=== PATIENT | male | born 1960 | race Caucasian/White ===

== ENCOUNTER 2019-06-22 19:11 | Observation (INO) | payer OTHER, SELFPAY ==
[2019-06-22] VITALS (8 sets, daily range): BP systolic 163–184; BP diastolic 94–108; PULSE 66–100; RESP 13–21; TEMP 36.8; O2SAT 94–98; BMI 26.2; BMI 26.1; BMI 25.6
--- NOTE | 2019-06-22 19:15 | CT_ITS ---
We are attempting to reach an attending provider to discuss findings. An addendum with communication details will be sent when the communication is complete. STUDY: CT BRAIN WITHOUT CONTRAST REASON FOR EXAM: Male, 59 years old. Right facial numbness and slurred speech RADIATION DOSAGE (If Supplied By Facility): CTDIvol = ( 44.99 ) mGy, DLP = ( 812.968 ) mGycm TECHNIQUE: Transaxial CT imaging of the brain was performed without administration of intravenous contrast material. Individualized dose optimization techniques were used for this CT. COMPARISON: No relevant priors. FINDINGS: Brain parenchyma is without focal lesions, mass effect, acute intracranial hemorrhage, extra parenchymal fluid collections, hydrocephalus or herniation. There is a right lentiform nucleus dilated perivascular space. The skull is intact. CT/Brain/Head without Contrast IMPRESSION: 1. Normal CT brain. Electronically Signed: Carey Joy, at 19:33 EST Tel , Service support ,
--- NOTE | 2019-06-22 19:15 | EKG12_ITS ---
Test Reason : NEURO Blood Pressure : / mmHG Vent. Rate : 081 BPM Atrial Rate : 081 BPM P-R Int : 154 ms QRS Dur : 084 ms QT Int : 374 ms P-R-T Axes : 041 034 -10 degrees QTc Int : 434 ms Normal sinus rhythm T wave abnormality, consider inferior ischemia Abnormal ECG Confirmed by RUSTY ARAYA, VIJAY ([id number]), manager editorial BECKA MOLINA ([id number]) on 06/26/2019 10:28:33 AM Referred By: DONALD Confirmed By:SANDOR OJEDA MD
--- NOTE | 2019-06-22 19:20 | RAD_ITS ---
STUDY: X-RAY CHEST REASON FOR EXAM: Male, 59 years old. STROKE ALERT. PT RIGHT FACIAL NUMBNESS AND SLURRED SPEECH STARTING AROUND 0600 TECHNIQUE: Frontal view of the chest was performed COMPARISON: None. FINDINGS: The lungs are clear and expanded. There is no demonstrated pleural abnormality. Normal size heart. Normal mediastinum and tong. Normal visualized pulmonary arteries. Normal visualized aortic arch and descending thoracic aorta. Normal visualized thoracic spine. Normal visualized ribs, clavicles, and shoulders. There is no demonstrated abnormality of the visualized soft tissue structures of the upper abdomen. RAD/Chest 1 View IMPRESSION: Normal x-ray examination of the chest. Electronically Signed: Carey Joy, at 19:35 EST Tel , Service support ,
--- NOTE | 2019-06-22 19:21 | NURSING ---
PT AND DO NOT KNOW HOME MEDICATIONS.
--- NOTE | 2019-06-22 19:25 | ED.VIS.STROK ---
History of Present Illness Chief Complaint: Neuro S/Sx Informant: Patient, Family Onset: Today Quality and Location: Right Facial Droop, Right Face Paresthesia, Expressive Aphasia Narrative: Patient is a 59-year-old male with history of hypertension presenting with stroke symptoms. His symptoms started at 0600, 13 hours prior to arrival. Patient states he is noticed he is had a slight paresthesia over the right side of his face and he feels that he has some slight weakness of that side. He states he notices it when he tries to spit. In addition he feels that his speech is slightly slurred. His and neighbor feel this way as well. He denies any vision changes, extremity weakness or other symptoms. He is not on any anticoagulation. Denies any falls or head injuries. He denies any other symptoms at this time. He did not take any aspirin today. Past Medical History - Allergies and Home Meds Allergies/Adverse Reactions: Allergies No Known Allergies Allergy (Verified 06/22/19 20:57) Past Medical History: - - Hypertension Surgical History: noncontributory Lives: Spouse/ Significant Other Smoking Status: Never smoker - Family History Maternal Family History: Reports: Dementia Paternal Family History: Reports: - - Denies any medical history. His father is in his 90s. His father has had hip replacement. Review of Systems General: Denies: Chills, Fever, Sweats Eyes: Denies: Visual changes - bilaterally, Diplopia ENT: Denies: Rhinorrhea, Sore throat Cardiovascular: Denies: Chest pain, Palpitations Respiratory: Denies: Dyspnea, Cough, Dyspnea on exertion Gastrointestinal: Denies: Abdominal pain, Nausea, Vomiting, Diarrhea, Melena, Hematochezia Genitourinary: Denies: Dysuria, Hematuria, Frequency Musculoskeletal: Denies: Back pain, Extremity Pain Skin: Denies: Rash, Wounds Neurological: Reports: Weakness - Right face, Parasthesia - Right face, - - Speech changes. Denies: Headache, Numbness STROKE Vital Signs/Narrative: Vital Signs Temp Pulse Resp BP Pulse Ox 06/22/19 19:15 79 18 167/94 H 97 06/22/19 19:12 98.2 F 83 17 184/102 H 98 Inital Vital Signs reviewed: Yes - NIHSS Initial 1a Level of Consciousness: 0 1b LOC Questions (Score 2 if aphasic/stupor): 0 1c LOC Commands (Only score 1st attempt): 0 2 Best Gaze (If aphasic, use reflexive mvmts.): 0 3 Visual: 0 4 Facial Palsy: 1 - right 5 Motor Arm Right (UN = amputation/fusion): 0 5 Motor Arm Left: 0 6 Motor Leg Right: 0 6 Motor Leg Left: 0 7 Limb ataxia (Only + if out of proportion): 0 8 Sensory (Aphasia/stupor=0 or 1, coma=2): 1 - right face 9 Best Language: 0 10 Dysarthria (mute, coma=2, intubated=UN): 0 11 Extinction and Inattention (only scored if +): 0 Total Score: 2 General: Well nourished, Well developed Head: Normocephalic, Atraumatic Eyes: Perrl, EOMI ENT: Moist mucous membranes, No rhinorrhea Neck: Supple, Nontender Cardiovascular: Regular rate, Regular rhythm, No murmurs Respiratory: No distress, CTA bilaterally, Chest nontender Abdomen: Soft, Nontender, Nondistended, Normal bowel sounds Back: Nontender, Normal Inspection Extremities: Nontender, No edema Skin: Normal color, No rash Neurological: Alert, Oriented x3, Cranial nerves II-XII grossly intact, Normal Strength, Normal Sensation Psychological: Normal affect Diagnostic/Tx/Re-eval Clinical Impression(s) from Imaging Studies Brain CT 06/22/19 19:15 IMPRESSION: 1. Normal CT brain. Electronically Signed: Carey Joy at 19:33 EST Tel , Service support , ADDENDUM: 06/22/191940 IMPRESSION: 1. Normal CT brain. N.B. : The above information has been verbally conveyed by Carey Joy to Dennys Hurst MD, on 06/22/2019 19:34:51 (ET). Electronically Signed: Carey Joy at 19:33 EST Tel , Service support , ADDENDUM: 06/22/191943 IMPRESSION: 1. Normal CT brain. N.B. : The above information has been verbally conveyed by Carey Joy to Dr. Kindra Gonzalez MD, on 06/22/2019 19:37:04 (ET). Electronically Signed: Dionnemadeline Benita, at 19:33 EST Tel , Service support , Chest X-Ray 06/22/19 19:20 IMPRESSION: Normal x-ray examination of the chest. Electronically Signed: Carey Benita, at 19:35 EST Tel , Service support , Laboratory Data 06/22/19 06/22/19 06/22/19 19:15 19:15 19:15 WBC 9.1 RBC 5.02 Hgb 14.5 Hct 43.0 MCV 85.7 MCH 28.9 MCHC 33.7 RDW Std Deviation 40.0 RDW Coeff of Diego 12.9 Plt Count 255 MPV 9.5 Immature Gran % (Auto) 0.400 Neut % (Auto) 74.0 H Lymph % (Auto) 16.9 L [place] % (Auto) 4.2 Eos % (Auto) 3.9 Baso % (Auto) 0.6 Absolute Neuts (auto) 6.7 Absolute Lymphs (auto) 1.53 Nucleated RBC % 0 PT 14.2 INR 1.1 APTT 28.5 Sodium 139 Potassium 3.9 Chloride 107 Carbon Dioxide 27.0 Anion Gap 5 BUN 17 Creatinine 1.43 H Estim Creat Clear Calc 52.48 Est GFR (MDRD) Af Amer 65 Est GFR (MDRD) Non-Af 53 L BUN/Creatinine Ratio 11.9 Glucose 177 H Calcium 9.2 Troponin I < 0.015 Chest X-Ray - ED: 1 View, Read by ED Physician, Read by Radiologist, No Acute Disease - Rhythm Strip Rhythm Strip: Sinus Rhythm Rate: 81 Ectopy: None - EKG Initial EKG Interpretation: Sinus Rhythm, - - Sinus rhythm at a rate of 81 Normal intervals Normal axis T wave inversions in inferior leads with no reciprocal changes No change prior to prior EKG on 08/27/2002 - Medical Decision Making Stroke Team Activated: Yes Reviewed Inclusion/Exclusion criteria: Yes - TPA candidate, symptoms present for 13 hours Was Patient considered for Endovascular Intervention?: No - Low NIH Patient is evaluated for subjective speech slurring, facial droop and facial paresthesias that started this morning. He was already awake when they started. Stroke alert is called as a symptoms been present for less than 24 hours. Discussed with stroke neurologist who agrees that patient is not a TPA candidate. This was . CT brain does not show any acute stroke. Patient will be admitted for further stroke evaluation. He is given aspirin in the emergency room. Creatinine is mildly elevated however I do not have a baseline to compare with. Patient is not aware of any history of CKD. Patient will be given a liter of fluid in the emergency room for recheck of his creatinine in the morning. Patient is agreeable with this plan. He stable for PCU at time of disposition. Admitting hospitalist was able to find patient's baseline creatinine which appears to be 1.22. ED Disposition - Plan for ED Patient: Disposition: Acute Care Hospital [facility] Diagnosis: Stroke-like symptoms
[2019-06-22 19:29] LABS: Absolute Lymphocyte Count 1.53 X10^3/uL (0.83-4.51); Absolute Neutrophil Count 6.7 X10^3/uL (2.0-7.7); Basophil# 0.05 X10^3/uL; Basophil% 0.6 % (0-1); Eosinophil# 0.35 X10^3/uL; Eosinophils% 3.9 % (0-5); Hemoglobin 14.5 g/dL (13.0-16.5); Lymphocyte # 1.53 X10^3/ul (4.0); Lymphocyte % 16.9 % (19-41); Mean Corp Hgb Conc 33.7 g/dL (32-36); Mean Corpuscular Hgb 28.9 pg (27.0-32.0); Mean Corpuscular Volume 85.7 fL (80-94); Mean Platelet Vol. 9.5 fl (6.2-12.0); Monocyte# 0.38 X10^3/uL; Monocyte% 4.2 % (0-10); NRBC Flagged by Analyzer 0 % (0-5); Neutrophil # 6.73 X10^3/uL (2.7-7.7); Platelet Count 255 K/mm3 (150-450); RBC Distribution Width CV 12.9 % (11.6-14.6); Red Blood Count 5.02 M/mm3 (4.6-6.2); White Blood Count 9.1 K/mm3 (4.4-11.0)
[2019-06-22 19:39] LABS: International Normalized Ratio 1.1; Prothrombin Time (Protime)PT. 14.2 SECONDS (11.7-14.9)
[2019-06-22 19:40] LABS: Partial Thromboplast Time 28.5 Seconds (24.1-36.2)
[2019-06-22 19:46] LABS: Anion Gap 5 (5-15); BUN 17 mg/dL (7-18); BUN/Creat Ratio 11.9 RATIO (10-20); Calcium,Total 9.2 mg/dL (8.5-10.1); Chloride 107 mmol/L (98-107); Creatinine, Serum 1.43 mg/dL (0.70-1.30); EST Glomerular Filtration Rate 53 mL/min (>60); Est Glom Filt Rate - Afr Amer 65 mL/min (>60); Estimated Creatinine Clearance 52.48 ml/min; Glucose 177 mg/dL (74-106); Potassium 3.9 mmol/L (3.5-5.1); Sodium Level 139 mmol/L (136-145)
--- NOTE | 2019-06-22 20:01 | PCM.HP.STD ---
Problem List (1) Stroke-like symptoms Status: Acute History of Present Illness Date of Admission: 06/22/19 Chief Complaint: Paresthesia The patient is a 59 year old M with a significant history of hypertension who presents emergency department with paresthesia of his right face. His symptoms started about 13 hours prior to presentation. Associated with symptoms is mild slurry speech; mild right sided facial droop and weakness on the right side of the face. He realized that the right side of his face was weak because of difficulty to spit. He denies any dysphagia; or vision changes. Stroke alert was called at the emergency department. Emergency department doctor discussed the case with telemetry neurologist and patient will be admitted for further work-up. Past Medical History Medical History: Medical History (Last Reviewed 06/22/19 @ 20:46 by Jerson Mora MD) Hypertension I10 Home Medications: Ambulatory Orders Medication Instructions Recorded Telmisartan 40 mg PO QODAY 06/22/19 Surgical History: no surgical history Lives: With Family Smoking Status: Never smoker Alcohol: Rare - *Family History Maternal History Items: Dementia Paternal History Items: - - Denies any medical history. His father is in his 90s. His father has had hip replacement. Review of Systems Constitutional: Denies: Chills, Fever, Weight Change HEENT: Denies: Head Aches, Sinus Congestion, Sinus Drainage Cardiovascular: Denies: Chest Pain, Palpitations Respiratory: Denies: Cough, Shortness of breath at rest, Sputum production Gastrointestinal: Denies: Abdominal Pain, Nausea, Vomiting Genitourinary: Denies: Dysuria Musculoskeletal: Denies: Joint Pain, Joint Tenderness Skin: Denies: Rash, Wounds Neurological: Reports: Slurred speech, Focal weakness - Right face, Headaches Psychiatric: Denies: Anxiety, Depression, Homicidal Ideations, Suicidal Ideations Hematologic/ Lymphatic: Denies: Easy Bruising, Easy Bleeding VTE Information - Inpt Only VTE Present on Admission: No VTE Mechan Device Prophylaxis: None VTE Pharm Prophylaxis ordered?: Yes Patient Problems: Active and Suspected Problems (Last Updated 06/22/19 @ 20:45 by Jerson Mora MD) Stroke-like symptoms (Acute) - Physical Exam Vitals/I&O's: Vital Signs Temp Pulse Resp BP Pulse Ox 98.2 F 84 21 H 173/108 H 97 06/22/19 19:12 06/22/19 19:42 06/22/19 19:42 06/22/19 19:42 06/22/19 19:42 Oxygen Delivery Method Room Air Weight: 78.018 kg Body Mass Index (BMI) 26.1 Finger Stick Blood Glucose 85 General: Alert, Oriented x3, Cooperative HEENT: Atraumatic, PERRLA, EOMI, Normocephalic Neck: Supple, No JVD, Negative Carotid Bruits Lungs: Clear to auscultation, Normal air movement Cardiovascular: Regular rate, Normal S1, Normal S2, No murmurs Abdomen: Bowel Sounds Present, Soft, Non Tender Extremities: No edema, Capillary Refill Less than 3 Seconds Skin: No rashes, No breakdown Musculoskeletal: No Tenderness to Palpation of Joints or Extremities Neurological: Deep Tendon Reflexes 2+/4 and Symmetrical, Motor Exam 5/5 strength throughout, Facial Droop - Right side, Muscle tone normal, Sensory exam intact to light touch and pain, Coordination normal Psych/Mental Status: Normal Affect, Appropriate Laboratory Results 06/22/19 19:15: WBC 9.1, RBC 5.02, Hgb 14.5, Hct 43.0, MCV 85.7, MCH 28.9, MCHC 33.7, RDW Std Deviation 40.0, RDW Coeff of Diego 12.9, Plt Count 255, MPV 9.5, Immature Gran % (Auto) 0.400, Neut % (Auto) 74.0 H, Lymph % (Auto) 16.9 L, [place] % (Auto) 4.2, Eos % (Auto) 3.9, Baso % (Auto) 0.6, Absolute Neuts (auto) 6.7, Absolute Lymphs (auto) 1.53, Nucleated RBC % 0 06/22/19 19:15: PT 14.2, INR 1.1, APTT 28.5 06/22/19 19:15: Sodium 139, Potassium 3.9, Chloride 107, Carbon Dioxide 27.0, Anion Gap 5, BUN 17, Creatinine 1.43 H, Estim Creat Clear Calc 52.48, Est GFR (MDRD) Af Amer 65, Est GFR (MDRD) Non-Af 53 L, BUN/Creatinine Ratio 11.9, Glucose 177 H, Calcium 9.2, Troponin I < 0.015 Current Medications Sodium Chloride () 1,000 mls @ 150 mls/hr IV .Q6H40M [facility] Assessment/Plan All Active Problems (Last Updated 06/22/19 @ 20:45 by Jerson Mora MD) Stroke-like symptoms (Acute) The patient is a 59 year old M with a significant history of hypertension who presents emergency department with paresthesia of his right face; mild slurry speech; mild right sided facial droop and weakness on the right side of the face recently strokelike symptoms. Strokelike symptoms Frequent NINDS NIH Scale per kimbrough protocol. CT of the head was unremarkable. CT of the head was independently reviewed. I agree with radiologist interpretation. -Check Hba1c, Lipid level Physical therapy, occupational therapy and speech therapy to work with patient. Passed swallow eval at emergency department. Okay to resume patient on a diet. N.p.o. until bedside swallow eval. Received aspirin at the emergency department. Aspirin continued. Will start patient on Plavix. High intensity statin started Permissive hypertension. Control blood pressure with labetalol for systolic blood pressure of more than 220 or diastolic blood pressure of more than 120. -Permissive HTN for 24 hrs, jail goal BP < 120/80 mmHg and goal Hba1c < 7% MRI of the brain. CTA head and neck stroke protocol. Echocardiogram ordered. Hypertension On presentation his blood pressure was not within goal. However this could be autoregulation to maintain blood flow to penumbra. Home Telmisartan held. Permissive hypertension as above. Hyperglycemia. Accu-Chek on presentation was 185. Accu-Chek on BMP was 177. Accu-Chek QA [facility] with correction scale insulin ordered. A1c as above. Elevated creatinine with a diagnosis of BONNIE. His creatinine at Dr. Clemente Higgins's office on 07/09/2017 was 1.22. His creatinine on presentation was 1.43. Gentle IV hydration especially in the setting where patient will be getting IV contrast for CTA. DVT prophylaxis Subcutaneous Lovenox. Code Visit OBSV E&M: 92395 Initial observation care L3
[2019-06-22] MEDS: Aspirin 325 MG Tablet PO (20:04)
[2019-06-22] MEDS: 0.9% Normal Saline 1,000 ML 150 ML IV ×2 (20:09→22:39)
--- NOTE | 2019-06-22 20:49 | CT_ITS ---
HISTORY: Neurodeficit. Right facial numbness. Technique: Following the uneventful ministration of 100 ML of Isovue-370 contiguous helical images were obtained through the neck and brain. 2-D and 3-D reformats as MIPs. 890 images. Comparison study is a CT scan of the brain from about 2 hours earlier. Findings: CT angiogram neck Lung apices are clear. Some calcific plaque within the aortic arch. Flow is normal within the brachiocephalic, left and right common carotid, left and right subclavian, and left and right vertebral arteries. Both vertebral arteries ascend within their respective vertebral foramina, and remain patent into the skull. Flow is normal within bilateral CCAs, ICAs, and ECAs. Both ICAs remain patent into the skull. The submandibular, and parotid glands are normal. A hypodense lesion within the left lobe of the thyroid gland is likely benign The epiglottis and uvula remain within the midline. The airway is widely patent. No adenopathy. CT angiogram brain: Flow is present within bilateral intracranial vertebral arteries, the basilar artery, superior cerebellar arteries and fire patrol. The anterior communicating artery is patent. Tiny bilateral posterior communicating arteries are patent. Flow is present within the intracranial ICAs, ACAs, and MCAs. There are no aneurysms, stenoses, occlusions, nor dissections. CT/CTA Head AND Neck W/ Contrast IMPRESSION: Normal. Individualized dose optimization techniques were used for this CT. at 0518 Reported and signed by: Hilario Guidry MD Electronically Signed: Hilario Guidry MD at 5:17 EST Tel , Service support ,
--- NOTE | 2019-06-22 20:49 | ECHOD_ITS ---
Reason For Study: TIA/CVA Procedure This was a 2D Doppler, Color Flow transthoracic echocardiogram. Exam performed portable in patient room. Left Ventricle Normal LV size. The estimated ejection fraction is 60 %. No evidence for diastolic dysfunction. No regional wall motion abnormalities noted. Right Ventricle Normal RV size. Normal systolic function. Atria Normal left atrium. Normal right atrium. No doppler evidence for ASD. Bubble contrast study negative for right to left interatrial shunt. Mitral Valve There is no mitral valve stenosis. Trivial mitral valve insufficiency. Tricuspid Valve There is no tricuspid stenosis. Trivial tricuspid valve insufficiency. Unable to estimate RV systolic pressure due to insufficient tricuspid regurgitant envelope. Aortic Valve Trisinus/trileaflet aortic valve. There is no aortic stenosis. Trivial aortic valve insufficiency. Pulmonic Valve There is no pulmonic valvular stenosis. No pulmonic valve insufficiency. Great Vessels Normal aortic root. Pericardium/Pleural No pericardial effusion. Medication Performed a rapid injection of agitated mix of 9 cc saline and 1cc air to assess for atrial septal defect. MMode/2D Measurements & Calculations LVIDd: 4.5 cm IVSd: 1.2 cm Ao root diam: 3.1 cm LVIDs: 2.6 cm LVPWd: 1.0 cm RVDd: 3.4 cm FS: 42.9 % LAV(MOD-bp): 49.7 ml LA A4 area: 12.3 cm2 LA dimension(2D): 3.3 cm LAV(MOD-bp) Indexed: 26.2 ml/m2 LAV(MOD-sp2): 49.3 ml LAV(MOD-sp4): 35.8 ml Time Measurements MV dec time: 0.20 sec Doppler Measurements & Calculations MV E max mark: 80.8 cm/sec Lat Peak E' Mark: 9.5 cm/sec Med Peak E' Mark: 7.0 cm/sec MV A max mark: 77.0 cm/sec E/E' lat: 8.5 E/E' med: 11.5 MV E/A: 1.0 Ao V2 max: 120.6 cm/sec LV V1 max: 109.7 cm/sec PA V2 max: 104.8 cm/sec Ao max P.8 mmHg LV V1 max P.8 mmHg Ao V2 mean: 82.2 cm/sec Ao mean P.0 mmHg Ao V2 VTI: 25.2 cm TR max mark: 268.3 cm/sec TR max P.8 mmHg Interpretation Summary The estimated ejection fraction is 60 %. No evidence for diastolic dysfunction. Bubble contrast study negative for right to left interatrial shunt. Trivial mitral valve insufficiency. Trivial tricuspid valve insufficiency. Trivial aortic valve insufficiency. Ordering Physician: Jerson Mora Referring Physician: Pernell Garcia Performed By: Tia Luke RDCS, RVT
[2019-06-22 21:46] LABS: Hemoglobin A1c 5.9 % (4.2-6.3)
[2019-06-22] MEDS: 0.9% Saline Lock 10 ML Syringe IV (22:39)
[2019-06-22] MEDS: Atorvastatin Calcium 80 MG Tablet PO (22:57)
[2019-06-23] VITALS (7 sets, daily range): BP systolic 135–152; BP diastolic 74–87; PULSE 59–68; RESP 12–16; TEMP 36.8–37; O2SAT 94–98; BMI 25.6
[2019-06-23 01:01] LABS: Bedside Glucose 86 mg/dL (70-110)
[2019-06-23] MEDS: 0.9% Normal Saline 1,000 ML 150 ML IV ×2 (05:52→12:30)
[2019-06-23 06:13] LABS: Absolute Lymphocyte Count 1.84 X10^3/uL (0.83-4.51); Absolute Neutrophil Count 6.7 X10^3/uL (2.0-7.7); Basophil# 0.05 X10^3/uL; Basophil% 0.5 % (0-1); Eosinophil# 0.39 X10^3/uL; Eosinophils% 4.1 % (0-5); Hematocrit 40.2 % (40-54); Hemoglobin 13.2 g/dL (13.0-16.5); Lymphocyte # 1.84 X10^3/ul (4.0); Lymphocyte % 19.4 % (19-41); Mean Corp Hgb Conc 32.8 g/dL (32-36); Mean Corpuscular Hgb 28.1 pg (27.0-32.0); Mean Corpuscular Volume 85.5 fL (80-94); Mean Platelet Vol. 9.8 fl (6.2-12.0); Monocyte# 0.55 X10^3/uL; Monocyte% 5.8 % (0-10); NRBC Flagged by Analyzer 0 % (0-5); Neutrophil # 6.65 X10^3/uL (2.7-7.7); Neutrophil % 70.1 % (47-70); Platelet Count 230 K/mm3 (150-450); RBC Distribution Width CV 13.1 % (11.6-14.6); RBC Distribution Width SD 40.7 fl (35.1-43.9); White Blood Count 9.5 K/mm3 (4.4-11.0)
[2019-06-23 06:37] LABS: Anion Gap 2 (5-15); BUN 14 mg/dL (7-18); BUN/Creat Ratio 11.8 RATIO (10-20); Calcium,Total 8.3 mg/dL (8.5-10.1); Chloride 109 mmol/L (98-107); Cholesterol 186 mg/dL (200); Creatinine, Serum 1.19 mg/dL (0.70-1.30); EST Glomerular Filtration Rate 66 mL/min (>60); Est Glom Filt Rate - Afr Amer 80 mL/min (>60); Estimated Creatinine Clearance 63.07 ml/min; Glucose 92 mg/dL (74-106); High Density Lipoprotein 47 mg/dL; Potassium 3.8 mmol/L (3.5-5.1); Sodium Level 139 mmol/L (136-145); Triglycerides 116 mg/dL; Very Low Density Lipoprotein 23 mg/dL (5-40)
[2019-06-23 07:06] LABS: Bedside Glucose 120 mg/dL (70-110)
--- NOTE | 2019-06-23 08:08 | PCM.PN.BLA ---
Progress Note This is a 59 years old male patient presented to the emergency room because of shortness of breath, found to have acute COPD exacerbation with hypoxia. Reportedly, patient had syncopal episode. By direct questioning, patient mentioned that he stood up at the bed edge and he collapsed because he was weak. He mentioned that he did not lose his consciousness, was not dizzy or lightheaded. He denied preceding chest pain or palpitation. Today, he reported minimal improvement of his symptoms. Chest x-ray showed no acute findings. Routine blood work was unremarkable. ABG reviewed. EKG revealed normal sinus rhythm without evidence of acute segment changes or cardiac arrhythmias. Troponin was negative. He is on IV steroids, IV Zithromax and bronchodilators. Plan to continue same treatment. STROKE Vital Signs/Narrative: Vital Signs Temp Pulse Resp BP Pulse Ox 06/23/19 07:00 95 06/23/19 06:47 67 06/23/19 05:00 98.4 F 68 12 135/74 H 95
[2019-06-23] MEDS: Enoxaparin 40 MG/0.4 ML Syringe SC (08:27)
[2019-06-23] MEDS: Clopidogrel Bisulfate 75 MG Tablet PO (08:27)
[2019-06-23] MEDS: Aspirin 81 MG TAB.CHEW PO (08:27)
--- NOTE | 2019-06-23 14:14 | DCINST_ITS ---
- Discharge Diagnoses Current Active Problems: Current Active and Chronic Problems (Last Reviewed 06/22/19 @ 20:46 by Jerson Mora MD) Stroke-like symptoms (Acute) You will use the following diet at home:: Cardiac Discharge Activity: Return to Normal Activity Weight Bearing Status: Full weight bearing Call your doctor if you observe: Fever of 101 or Higher, Shortness of breath, Dizziness, Fainting spells, Chest pain, Increased palpitations (irregular heartbeat), Uncontrolled pain Instructions: Hamilton's Palsy Allergies/Adverse Reactions: Allergies No Known Allergies Allergy (Verified 06/22/19 20:57) Medications to take at Discharge Telmisartan 40 mg PO QODAY 06/22/19 Aspirin [Aspirin, Baby] 81 mg PO DAILY@0800 #1 tab.chew 06/23/19 Prednisone 60 mg PO DAILY #45 tab 06/23/19 Valacyclovir HCl [Valacyclovir] 1,000 mg PO TID #21 tab 06/23/19 The following prescriptions were given: Aspirin [Aspirin, Baby] 81 mg PO DAILY@0800 #1 tab.chew Prednisone 60 mg PO DAILY #45 tab Transmission Status: Pending to [id number] Valacyclovir HCl [Valacyclovir] 1,000 mg PO TID #21 tab Transmission Status: Pending to [facility][id number] Primary Care Physician: Pernell Garcia DO [Primary Care Provider] - Please follow up with your Primary Care Physician in: 1 week. Test Results: Test results from this visit will be discussed in further detail at your follow- up appointment, if applicable.
--- NOTE | 2019-06-23 14:38 | DS.PCM_ITS ---
Discharge Date and Diagnosis - Problem List Patient Problems: Active and Suspected Problems (Last Reviewed 06/22/19 @ 20:46 by Jerson Mora MD) Hamilton's palsy (Acute) Date of Admission: 06/22/19 Date of Discharge: 06/23/19 - Primary Discharge Diagnosis Active and Suspected Problems (Last Reviewed 06/22/19 @ 20:46 by Jerson Mora MD) Hamilton's palsy. Hospital Course and Treatment Imaging Results: 06/23/19 20:49 Brain without Contrast [MRI] Routine Clinical Impression(s) from Imaging Studies Brain CT 06/22/19 19:15 IMPRESSION: 1. Normal CT brain. Electronically Signed: Carey Joy, at 19:33 EST Tel , Service support , ADDENDUM: 06/22/191940 IMPRESSION: 1. Normal CT brain. N.B. : The above information has been verbally conveyed by Carey Joy to Dennys Hurst MD, on 06/22/2019 19:34:51 (ET). Electronically Signed: Carey Joy at 19:33 EST Tel , Service support , ADDENDUM: 06/22/191943 IMPRESSION: 1. Normal CT brain. N.B. : The above information has been verbally conveyed by Carey Joy to Dr. Kindra Gonzalez MD, on 06/22/2019 19:37:04 (ET). Electronically Signed: Carey Joy at 19:33 EST Tel , Service support , Chest X-Ray 06/22/19 19:20 IMPRESSION: Normal x-ray examination of the chest. Electronically Signed: Carey Joy at 19:35 EST Tel , Service support , Head/Neck CTA 06/22/19 20:49 IMPRESSION: Normal. Individualized dose optimization techniques were used for this CT. at 0518 Reported and signed by: Hilario Guidry MD Electronically Signed: Hilario Guidry MD at 5:17 EST Tel , Service support , Brain MRI 06/23/19 20:49 IMPRESSION: Involutional changes of the brain, as described above. Electronically Signed: Rupesh Vergara MD at 12:43 EST Tel , Service support , Operations: None Procedures: 2-D Echocardiogram Summary of Care Provided: Patient seen and examined on the day of discharge and appeared to be stable to discharge home. Still complaining of numbness and tingling on the right side of his face over the right cheek, asymmetrical smile as well as asymmetrical forehead wrinkle. Her symptoms attributed to Hamilton's palsy. His vital signs are stable. He was given 1 dose of prednisone 60 mg x 1 p.o. and 1 dose of valacyclovir 1000 mg before discharge. The patient is a 59 year old M patient presented to the emergency room because of right facial paresthesia, right facial droop and slurred speech. He was admitted as a case of TIA for work-up. CT scan brain showed no acute findings. EKG revealed normal sinus rhythm without evidence of acute segment changes or cardiac arrhythmias. His vital signs were stable. His routine blood work was unremarkable. Blood profile revealed total cholesterol of 186, LDL cholesterol of 116 and HDL cholesterol of 47. Hemoglobin A1c was 5.9%. CTA of the head and neck performed and revealed no evidence of hemodynamically significant vascular disease or stenosis, it was normal. MRI brain showed no evidence of acute i nfarct or hemorrhage. 2D echocardiogram revealed ejection fraction of 60%, bubble contrast study negative for [id number] shunt, no significant valvular heart disease. On examination, patient does have right facial droop, minimal right eye ptosis although he was able to close his right eye but not tightly which is consistent with right facial palsy. He was given a dose of prednisone 60 mg x 1 as well as valacyclovir 1000 mg x 1 before discharge. Patient discharged home in a stable condition, discharged on prednisone 60 mg for 5 days and then tapered down each day until 10 mg daily and then stop, discharged on valacyclovir 1000 mg 3 times daily for 7 days, recommended to take aspirin 81 mg p.o. daily, recommended follow-up with PCP in 1 week. Patient Problems: Active and Suspected Problems (Last Reviewed 06/22/19 @ 20:46 by Jerson Mora MD) Hamilton's palsy (Acute) - Physical Exam Vitals/I&O's: Vital Signs Temp Pulse Resp BP Pulse Ox 98.3 F 66 16 152/79 H 97 06/23/19 12:25 06/23/19 12:25 06/23/19 12:25 06/23/19 12:25 06/23/19 12:25 Oxygen Delivery Method Room Air Weight: 168 lb 6.931 oz Body Mass Index (BMI) 25.6 Finger Stick Blood Glucose 85 Intake and Output for Last 24 Hours 06/21/19 06/22/19 06/23/19 23:59 23:59 23:59 Intake Total 290 / 290 2220 / 2220 Balance 290 / 290 2220 / 2220 General: Alert, Oriented x3, Cooperative, No apparent distress HEENT: Atraumatic, PERRLA, EOMI, Normocephalic Oral: Moist Mucosa, No Gingival or Mucosal Lesions/ Ulcerations Neck: Supple, No JVD, Negative Carotid Bruits Lungs: Clear to auscultation, Normal air movement, No rhonchi, No wheeze, No rales Cardiovascular: Regular rate, Regular Rhythm, Normal S1, Normal S2, PMI Normal Abdomen: Bowel Sounds Present, Soft, Non Tender, Non-Distended, No Hepato- splenomegaly Extremities: No clubbing, No cyanosis, No edema Skin: No rashes, No breakdown Lymphatic: No Cervical, Supraclavicular, or Inguinal Adenopathy Neurological: - - Lower motor neuron right facial palsy, minimal. Asymmetrical smile, minimal right facial droop, minimal loss of wrinkles on the right forehead. Psych/Mental Status: Normal Affect, Appropriate Laboratory Results 06/22/19 19:15: WBC 9.1, RBC 5.02, Hgb 14.5, Hct 43.0, MCV 85.7, MCH 28.9, MCHC 33.7, RDW Std Deviation 40.0, RDW Coeff of Diego 12.9, Plt Count 255, MPV 9.5, Immature Gran % (Auto) 0.400, Neut % (Auto) 74.0 H, Lymph % (Auto) 16.9 L, [place] % (Auto) 4.2, Eos % (Auto) 3.9, Baso % (Auto) 0.6, Absolute Neuts (auto) 6.7, Absolute Lymphs (auto) 1.53, Nucleated RBC % 0 06/22/19 19:15: PT 14.2, INR 1.1, APTT 28.5 06/22/19 19:15: Sodium 139, Potassium 3.9, Chloride 107, Carbon Dioxide 27.0, Anion Gap 5, BUN 17, Creatinine 1.43 H, Estim Creat Clear Calc 52.48, Est GFR (MDRD) Af Amer 65, Est GFR (MDRD) Non-Af 53 L, BUN/Creatinine Ratio 11.9, Glucose 177 H, Calcium 9.2, Troponin I < 0.015 06/22/19 19:15: Hemoglobin A1c 5.9 06/22/19 22:56: POC Glucose 86 06/23/19 05:44: WBC 9.5, RBC 4.70, Hgb 13.2, Hct 40.2, MCV 85.5, MCH 28.1, MCHC 32.8, RDW Std Deviation 40.7, RDW Coeff of Diego 13.1, Plt Count 230, MPV 9.8, Immature Gran % (Auto) 0.100, Neut % (Auto) 70.1 H, Lymph % (Auto) 19.4, [place] % (Auto) 5.8, Eos % (Auto) 4.1, Baso % (Auto) 0.5, Absolute Neuts (auto) 6.7, Absolute Lymphs (auto) 1.84, Nucleated RBC % 0 06/23/19 05:44: Sodium 139, Potassium 3.8, Chloride 109 H, Carbon Dioxide 28.0, Anion Gap 2 L, BUN 14, Creatinine 1.19, Estim Creat Clear Calc 63.07, Est GFR (MDRD) Af Amer 80, Est GFR (MDRD) Non-Af 66, BUN/Creatinine Ratio 11.8, Glucose 92, Calcium 8.3 L, Triglycerides 116, Cholesterol 186, LDL Cholesterol 116, VLDL Cholesterol 23, HDL Cholesterol 47 06/23/19 06:52: POC Glucose 120 H Current Medications Acetaminophen (Tylenol) 650 mg PO Q6H PRN PRN PRN Reason: Pain Score 1-10/Temp > 100.7 F Aspirin (Aspirin, Baby) 81 mg PO DAILY@0800 [facility] Last Admin: 06/23/19 08:27 Dose: 81 mg Documented by: Atorvastatin Calcium (Lipitor) 80 mg PO QHS [facility] Last Admin: 06/22/19 22:57 Dose: 80 mg Documented by: Clopidogrel Bisulfate (Plavix) 75 mg PO DAILY [facility] Last Admin: 06/23/19 08:27 Dose: 75 mg Documented by: Enoxaparin Sodium (Lovenox) 40 mg SC DAILY [facility] Last Admin: 06/23/19 08:27 Dose: 40 mg Documented by: Glucagon () 1 mg IM .X1 PRN PRN Reason: Hypoglycemia Sodium Chloride () 1,000 mls @ 150 mls/hr IV .Q6H40M [facility] Stop: 06/23/19 16:48 Last Admin: 06/23/19 12:30 Dose: 150 mls/hr Documented by: Sodium Chloride () 250 mls @ 15 mls/hr IV .[id number] PRN PRN Reason: Saline Flush Sodium Chloride () 250 mls @ 15 mls/hr IV .[id number] PRN PRN Reason: Additional IVPB Infusion Dextrose (Dextrose 10%-Water) 250 mls @ 999 mls/hr IV .Q16M PRN; Protocol PRN Reason: HYPOGLYCEMIA Labetalol HCl (Trandate) 10 mg IV Q10M PRN PRN Reason: MAINTAIN BP < 220/120 Stop: 06/23/19 20:50 Ondansetron HCl (Zofran) 4 mg IV Q8H PRN PRN PRN Reason: NAUSEA/VOMITING Sodium Chloride () 10 - 40 ml IV UD PRN PRN Reason: SALINE FLUSH Last Admin: 06/22/19 22:39 Dose: 10 ml Documented by: Discharge Activity: Return to Normal Activity Weight Bearing Status: Full weight bearing Call your doctor if you observe: Fever of 101 or Higher, Shortness of breath, Dizziness, Fainting spells, Chest pain, Increased palpitations (irregular heartbeat), Uncontrolled pain Home Medications: Medications to take at Discharge Telmisartan 40 mg PO QODAY 06/22/19 Aspirin [Aspirin, Baby] 81 mg PO DAILY@0800 #1 tab.chew 06/23/19 Prednisone 60 mg PO DAILY #45 tab 06/23/19 Valacyclovir HCl [Valacyclovir] 1,000 mg PO TID #21 tab 06/23/19 Following Prescrptions Were Given to Patient: Aspirin [Aspirin, Baby] 81 mg PO DAILY@0800 #1 tab.chew Prednisone 60 mg PO DAILY #45 tab Transmission Status: Received by [facility]pharmacy #[id number] Valacyclovir HCl [Valacyclovir] 1,000 mg PO TID #21 tab Transmission Status: Received by [facility]/pharmacy #[id number] Primary Care Physician: Pernell Garcia DO [Primary Care Provider] - Please follow up with your Primary Care Physician in: 1 week. Patient Instructions: Hamilton's Palsy Disposition: Home Minutes spent on discharge:: 28 Patient Condition:: Stable Medical Necessity - Tobacco Use Smoking Status: Never smoker Tobacco Use: Non-smoker Meaningful Use Info Meaningful Use Diagnoses (Choose all that apply): None applicable Code Visit OBSV E&M: 51675 Observation care discharge
[2019-06-23] MEDS: predniSONE 20 MG Tablet 60 MG PO (14:46)
--- NOTE | 2019-06-23 20:49 | MRI_ITS ---
STUDY: MRI BRAIN WITHOUT CONTRAST REASON FOR EXAM: Male, 59 years old. RIGHT facial droop and amp;numbness, slurred speech. TECHNIQUE: Standardized multiplanar fat and water weighted pulse sequences were obtained. COMPARISON: CT to FINDINGS: There is mild cerebral atrophy with widening of the extra-axial spaces and ventricular dilatation. Normal white matter tracts of the supratentorial brain. There is no evidence for recent intracranial ischemia or other cause of cytotoxic edema on diffusion weighted imaging (DWI). Normal T2* images of the brain without demonstrated susceptibility artifact. There is no demonstrated hemosiderin stain. Normal bilateral basal ganglia. Normal thalami. There is no extra-axial fluid accumulation. Normal flow voids within the major intracranial circulation suggesting patency by spin echo criteria. Normal sella turcica, pituitary gland, infundibular stalk, optic chiasm and hypothalamus. Normal tectal plate and pineal gland. Normal midbrain, raghav and medulla. Normal cerebellum. Normal basal cisterns. Normal bilateral temporal bones. Normal bilateral internal auditory canals. No demonstrated orbital abnormality, within the constraints of a routine brain study. Normal visualized paranasal sinuses. Normal calvarium and skull base. Normal visualized soft tissue structures. Normal visualized upper cervical spine. MRI/Brain without Contrast IMPRESSION: Involutional changes of the brain, as described above. Electronically Signed: Rupesh Vergara MD at 12:43 EST Tel , Service support ,
[2019-06-27 10:55] LABS: Bedside Glucose 185 mg/dL (70-110)
== END 2019-06-23 14:15 | disposition home or self-care (01) ==
LOC: ED 19:25 → PCU 20:51
PROVIDERS: Emergency Medicine; Admitting Provider Hospitalist; Emergency Provider Emergency Medicine; PCP Family Medicine; Visit Provider Hospitalist
DX: G51.0 Bell's palsy (principal); I10 Essential (primary) hypertension; Z79.899 Other long term (current) drug therapy; R29.702 NIHSS score 2; R73.9 Hyperglycemia, unspecified
CPT/HCPCS: 36415; 70450; 70496; 70498; 70551; 71045; 80048; 80061; 82962; 83036; 84484; 85025; 85610; 85730; 92610; 93005; 93306; 94762; 96360; 96361; 96372; 97162; 97166; 99218; 99251; 99285; J7030; Q9967; A4216; G0378; G0463

== ENCOUNTER 2022-11-25 16:05 | Emergency (ER) | payer OTHER, SELFPAY ==
[2022-11-25 16:06] VITALS: BP 150/79; PULSE 74; RESP 18; TEMP 36.7; O2SAT 99; BMI 25.2
[2022-11-25 16:20] LABS: Absolute Lymphocyte Count 1.82 X10^3/uL (0.83-4.51); Absolute Neutrophil Count 16.7 X10^3/uL (2.0-7.7); Basophil# 0.04 X10^3/uL; Basophil% 0.2 % (0-1); Eosinophil# 0.22 X10^3/uL; Eosinophils% 1.1 % (0-5); Hematocrit 42.8 % (40-54); Hemoglobin 14.2 g/dL (13.0-16.5); Lymphocyte # 1.82 X10^3/ul (0.83-4.51); Mean Corp Hgb Conc 33.2 g/dL (32-36); Mean Corpuscular Hgb 28.8 pg (27.0-32.0); Mean Corpuscular Volume 86.8 fL (80-94); Mean Platelet Vol. 9.5 fl (6.2-12.0); Monocyte# 1.33 X10^3/uL; Monocyte% 6.6 % (0-10); NRBC Flagged by Analyzer 0 % (0-5); Neutrophil # 16.71 X10^3/uL (2.7-7.7); Neutrophil % 82.6 % (47-70); Platelet Count 271 K/mm3 (150-450); RBC Distribution Width CV 13.2 % (11.6-14.6); RBC Distribution Width SD 41.7 fl (35.1-43.9); Red Blood Count 4.93 M/mm3 (4.6-6.2); White Blood Count 20.2 K/mm3 (4.4-11.0)
[2022-11-25 16:38] LABS: ALB/GLOB Ratio 0.9 RATIO (0.9-2.4); AST(SGOT) 17 U/L (15-37); Alanine Aminotransfer ALT/SGPT 26 U/L (16-61); Albumin, Serum 3.6 g/dL (3.2-5.0); Alkaline Phosphatase 47 U/L (45-117); Anion Gap 6 (5-15); BUN 18 mg/dL (7-18); BUN/Creat Ratio 8.8 RATIO (10-20); Chloride 107 mmol/L (98-107); Creatinine, Serum 2.04 mg/dL (0.70-1.30); EST Glomerular Filtration Rate 35 mL/min (>60); Est Glom Filt Rate - Afr Amer 42 mL/min (>60); Estimated Creatinine Clearance 36.58 ml/min; Globulin 3.8 g/dL (2.2-4.2); Glucose 108 mg/dL (74-106); Potassium 3.9 mmol/L (3.5-5.1); Protein, Total 7.4 g/dL (6.4-8.2); Sodium Level 137 mmol/L (136-145)
--- NOTE | 2022-11-25 17:05 | EX.ED.DYSGE1 ---
HPI History of Present Illness Chief Complaint: Abd Pain [facility] Medical History (Updated 11/25/22 @ 19:[address] Kody Greene, DO) Hypertension Home Medications telmisartan 40 mg tablet 40 mg PO QODAY bp 06/22/19 [History Last Taken 06/22/19] aspirin 81 mg chewable tablet 81 mg PO DAILY@0800 ##1 06/23/19 [Rx Last Taken Unknown] prednisone 10 mg tablet 60 mg (6 x 10 mg) PO DAILY #45 tabs 06/23/19 [Rx Last Taken Unknown] valacyclovir 1 gram tablet 1,000 mg PO TID #21 tabs 06/23/19 [Rx Last Taken Unknown] ondansetron 4 mg disintegrating tablet 4 mg PO Q8H PRN nausea and vomiting 5 days #15 tabs 11/25/22 [Rx Last Taken Unknown] Allergy/AdvReac Type Severity Reaction Status Date / Time No Known Allergies Allergy Verified 11/25/22 16:07 Social History Smoking Status: Never smoker EXAM Physical Exam Const Vital Signs: 11/25/22 16:06 Temperature 98.1 F Temperature Source Temporal Pulse Rate 74 Respiratory Rate 18 Blood Pressure 150/79 H Blood Pressure Mean 102 Pulse Ox 99 Oxygen Delivery Method Room Air [facility] MDM MDM Narrative Medical decision making narrative: HISTORY OF PRESENT ILLNESS: 62-year-old male here with right-sided flank pain, right side abdominal pain for 1 day. He states pain has been intermittent. Not associate with urination. No constipation or diarrhea. Denies history abdominal surgery. No vomiting or fever. No chest pain or shortness of breath. REVIEW OF SYSTEMS: Pertinent positives: Abdominal pain, flank pain Pertinent negatives: Loss of consciousness, decreased urination PHYSICAL EXAM: Nursing triage notes reviewed, Vital signs reviewed Constitutional: please see mdm HENT: MMM Eyes: Pupils equal round and reactive to light, Extraocular muscles intact Neck: No stridor, no JVD, full neck ROM Lungs: Clear to auscultation, No wheezing or rales. No increased work of breathing, no conversational dyspnea, no accessory muscle use, no nasal flaring. No respiratory distress noted Heart: Regular rate and rhythm, No murmurs, No rubs and No gallops, 2+ distal pulses (radial, femoral, posterior tibial) in all extremities Abdomen: Soft, there is no tenderness, rigidity, rebound or guarding, no obvious peritoneal signs, no palpable pulsatile abdominal masses, no auscultated abdominal bruit : Right CVA tenderness Extremities: No edema Neuro: No focal neurological deficits, cranial nerves II through XII intact, 5/5 strength in all extremities. Intact sensation to light touch in all extremities, 2+ reflexes bilateral patella tendons. Normal gait. No ataxia. Skin: No rash or lesions noted MEDICAL DECISION MAKING: Chief Complaint: Abdominal pain External records reviewed: No recent advanced imaging of the abdomen or pelvis noted Factors affecting care: Hypertension Social determinants of health: none History obtained from others: The patient's Consults: none ALL IMAGES (IF OBTAINED) HAVE BEEN PERSONALLY REVIEWED AND INTERPRETED BY MYSELF. CBC with marked leukocytosis consistent with systemic summation, no anemia or thrombocytopenia noted BMP without significant electrolyte abnormalities, noted acute kidney injury LFTs show no evidence of hepatobiliary pathology. Urinalysis shows no evidence of urinary inflammation suggestive of UTI MDM Narrative: Patient was hemodynamically stable, afebrile, nontoxic-appearing abdominal exam with right CVA tenderness, right lower quadrant tenderness over the appendix. I considered the following differential diagnosis:acute appendicitis, nephrolithiasis, testicular torsion, orchitis, testicular cancer, hernia, hepatobiliary pathology, pyelonephritis There is no testicular tenderness suggest torsion orchitis or testicular cancer. No obvious hernia noted on abdominal exam. I obtained a broad lab and imaging work-up to further elucidate the etiology of the patient's complaint and CT scan showed evidence of nephrolithiasis. Patient's urine had no evidence of infection showed occult hematuria. Labs with evidence of leukocytosis suggestive of systemic inflammation. There is no evidence of liver dysfunction. There was mild renal insufficiency likely secondary to kidney stone. This was treated with normal saline. Offered the patient pain medicine however he refused stating his pain is under control. Given the size and distal location of the patient's donut will most likely pass on its own does not require emergent treatment/urology consultation. I did discuss patient's finding of acute kidney injury. Offered further IV fluid resuscitation repeat lab evaluation however patient felt confident he can drink fluids at home given is not nauseous has not been vomiting. States he will follow-up his primary care physician for further outpatient evaluation. This was discussed with the patient he agreed. He was given Zofran for as needed nausea and instructions to return to the ED if symptoms change or worsen. The patient and/or family, caregivers express understanding. The patient and/or family, caregivers agrees with the plan. Total critical care time today provided was at least 0 minutes. This excludes separately billable procedures. Critical care time (if documented) is secondary to the patient having high probability of clinically significant/life threatening deterioration in the patient's condition which required my urgent intervention. Shared decision making: I will have a discussion with the patient and or visitors regarding risk/benefits of further testing or admission. They will be made aware of of the risk/benefits inherent in this decision they will be given the opportunity to voice understanding. Lab Data Attestation: I reviewed the patient's lab results. Labs: Laboratory Results - last 24 hr 11/25/22 11/25/22 16:14 16:55 WBC 20.2 H RBC 4.93 Hgb 14.2 Hct 42.8 MCV 86.8 MCH 28.8 MCHC 33.2 RDW Std Deviation 41.7 RDW Coeff of Diego 13.2 Plt Count 271 MPV 9.5 Immature Gran % (Auto) 0.500 Neut % (Auto) 82.6 H Lymph % (Auto) 9.0 L [place] % (Auto) 6.6 Eos % (Auto) 1.1 Baso % (Auto) 0.2 Absolute Neuts (auto) 16.7 H Absolute Lymphs (auto) 1.82 Nucleated RBC % 0 Sodium 137 Potassium 3.9 Chloride 107 Carbon Dioxide 24.0 Anion Gap 6 BUN 18 Creatinine 2.04 H Estim Creat Clear Calc 36.58 Est GFR (MDRD) Af Amer 42 L Est GFR (MDRD) Non-Af 35 L BUN/Creatinine Ratio 8.8 L Glucose 108 H Calcium 9.0 Total Bilirubin 0.80 AST 17 ALT 26 Alkaline Phosphatase 47 Total Protein 7.4 Albumin 3.6 Globulin 3.8 Albumin/Globulin Ratio 0.9 Lipase 29 Urine Color Yellow Urine Clarity Clear Urine pH 6.0 Ur Specific [place] 1.010 Urine Protein Negative Urine Glucose (UA) Normal Urine Ketones Negative Urine Occult Blood 10 H Urine Nitrite Negative Urine Bilirubin Negative Urine Urobilinogen Normal Ur Leukocyte Esterase Negative Urine RBC 0 SEEN Urine WBC 0 SEEN Ur Squamous Epith Cells 0 SEEN Urine Bacteria 0 SEEN Urine Mucus 0 SEEN Radiography Diagnostic Testing: Clinical Impression(s) from Imaging Studies Abdomen/Pelvis CT 11/25/22 17:06 IMPRESSION: Partially obstructing 3 mm calculus at the right UVJ, possibly in the intramural portion. Electronically Signed: Erich Amaya MD at 18:10 EDT , Discharge Plan Triage Chief Complaint: Abd Pain ED Provider: Kody Greene Dx/Rx/DC Orders Clinical Impression: BONNIE (acute kidney injury), Nephrolithiasis Instructions: ED Kidney Stone w/ Colic Prescriptions: New ondansetron 4 mg tablet,disintegrating 4 mg PO Q8H PRN (Reason: nausea and vomiting) 5 Days Qty: 15 0RF No Action telmisartan 40 MG tablet 40 mg PO QODAY prednisone 10 MG tablet 60 mg PO DAILY Qty: 45 0RF Rx Instructions: 60mg daily x5 days 50mg daily x1 days 40mg daily x1 days 30mg daily x1 days 20mg daily x1 days 10mg daily x1 day. then stop. valacyclovir 1,000 MG tablet 1,000 mg PO TID Qty: 21 0RF aspirin 81 MG tablet,chewable 81 mg PO DAILY@0800 Qty: 1 0RF Primary Care Provider: Pernell Garcia Referrals: Pernell Garcia DO [Primary Care Provider] - Activity Restrictions/Additional Instructions: Thank you for trusting us with your care today! Please take Tylenol (2 pills, 650 mg), ibuprofen (2 pills, 400 mg) every 6 hours as needed for pain and fever control. Please return to the emergency department if your symptoms change or worsen. Specifically do not urinate for greater than 12 hours. If develop vomiting and your pain is not controlled by oral Tylenol and ibuprofen. Please increase your fluid intake to discourage development of kidney stones. I recommend Pedialyte or body armor. He may also drink plain water. Please follow with your primary care physician for further outpatient evaluation and management. Disposition Disposition: Home, Self Care
--- NOTE | 2022-11-25 17:06 | CT_ITS ---
INDICATION: right flank pain, right sided abdominal pain EXAMINATION: CT ABDOMEN AND PELVIS WITH CONTRAST - CT Abdomen And Pelvis W/ Contrast Injection TECHNIQUE: Helically acquired images were obtained of the abdomen and pelvis following IV contrast. A radiation dose optimization technique was used for this scan. IV Contrast dosage and agent: Two-view 370 Oral contrast: None. COMPARISON: None. FINDINGS: LOWER CHEST: Bibasilar dependent changes. No cardiomegaly or pericardial effusion. LIVER: Scattered hepatic cysts. No concerning focal mass. GALLBLADDER AND BILIARY TREE: No calcified gallstones. No gallbladder distension or wall edema. No intra- or extrahepatic biliary ductal dilation. PANCREAS: No focal cystic or solid mass. SPLEEN: Normal size without focal cystic or solid mass. ADRENAL GLANDS: No nodules. KIDNEYS AND URETERS: Bilateral cortical cysts and nonobstructing renal calculi. Prominent left parapelvic cysts. Right hydronephrosis with perinephric stranding. 3 mm calculus at the right UVJ, possibly in the intramural portion of the ureter. PERITONEUM: No ascites or free air. BOWEL: Normal caliber appendix secondarily involved in the right perinephric stranding. No stomach or bowel distension. No focal inflammatory change. LYMPH NODES: No enlarged mesenteric or retroperitoneal lymph nodes. VESSELS: Aorta is non-dilated. URINARY BLADDER: Unremarkable. REPRODUCTIVE ORGANS: Prostate hypertrophy. ABDOMINAL WALL: No discrete abdominal or pelvic wall hernia. BONES: No acute or aggressive abnormality. CT/Abdomen/Pelvis W IV Cont ONLY IMPRESSION: Partially obstructing 3 mm calculus at the right UVJ, possibly in the intramural portion. Electronically Signed: Erich Amaya MD at 18:10 EDT ,
[2022-11-25 17:14] LABS: Bacteria 0 SEEN /hpf (None Seen); Mucous, Urine 0 SEEN /hpf (<or=2+); Red Blood Cells-Urine 0 SEEN /hpf (0-5); Squamous Epithelial Cells - UA 0 SEEN /hpf (0-5); White Blood Cells 0 SEEN /hpf (0-5)
[2022-11-25] MEDS: 0.9% Normal Saline 1,000 ML 1000 ML IV (17:15)
[2022-11-25 17:18] LABS: Color, Urine Yellow (Yellow); Glucose, Dipstick Normal (Normal); Ketone-Dipstick Negative (Negative); Leukocyte Esterase-Dipstick Negative /ul (Negative); Nitrite-Dipstick Negative (Negative); Occult Blood-Urine 10 /ul (Negative); Protein-Dipstick Negative (Negative); Urine Bilirubin Dipstick Negative (Negative); Urine Clarity Clear (Clear); Urine Urobilinogen Normal (Normal)
[2022-11-25 18:31] LABS: Lipase 29 U/L (13-75)
[2022-11-25 20:00] VITALS: BP 122/77; PULSE 82; RESP 16; TEMP 36.8
== END 2022-11-25 20:04 | disposition home or self-care (01) ==
PROVIDERS: Emergency Provider Emergency Medicine; PCP Family Medicine; Visit Provider Emergency Medicine
DX: N17.9 Acute kidney failure, unspecified (principal); I10 Essential (primary) hypertension; Z79.899 Other long term (current) drug therapy; N20.0 Calculus of kidney
CPT/HCPCS: 74177; 80053; 81001; 83690; 85025; 96360; 99284; J7030; Q9967; A4216

== ENCOUNTER 2023-12-31 18:51 | Emergency (ER) | payer OTHER, SELFPAY ==
[2023-12-31 18:53] VITALS: BP 144/84; PULSE 90; RESP 18; TEMP 36.8; O2SAT 96; BMI 25.9
[2023-12-31 19:07] LABS: Mucous, Urine 0 SEEN /hpf (<or=2+); Squamous Epithelial Cells - UA 0 SEEN /hpf (0-5)
[2023-12-31 19:08] LABS: Color, Urine Yellow (Yellow); Glucose, Dipstick Normal (Normal); Ketone-Dipstick Negative (Negative); Leukocyte Esterase-Dipstick 25 /ul (Negative); Nitrite-Dipstick Negative (Negative); Occult Blood-Urine 150 /ul (Negative); Protein-Dipstick Negative (Negative); Specific Gravity, Urine 1.005 (1.002-1.030); Urine Bilirubin Dipstick Negative (Negative); Urine Clarity Clear (Clear); Urine Urobilinogen Normal (Normal)
[2023-12-31 19:18] LABS: Red Blood Cells-Urine 50-100 SEEN /hpf (0-5)
[2023-12-31 19:19] LABS: Bacteria RARE /hpf (None Seen); White Blood Cells 10-25 SEEN /hpf (0-5)
--- NOTE | 2023-12-31 19:32 | EDS_ITS ---
HPI History of Present Illness Chief Complaint: Flank Pain Informant: patient and spouse/S.O. Narrative Narrative: 63-year-old [employer] male presenting to the emergency room with left flank pain. Patient states symptoms began about 2 days ago when he was coming home from vacation. It has been dull aching and waxing and waning. He notes he had a kidney stone about 1 year ago and this feels similar. He was able to pass that at that time. He notes that he has been drinking lots of fluids. He notes no change in bowel habits. No fevers. Mild nausea but no vomiting. He is trying not to take any pain medication and does not wish any at this time. [facility] Medical History Hypertension Home Medications ?Medication ?Instructions ?Recorded ?Last Taken ?Type telmisartan 40 mg tablet 40 mg PO QODAY bp 06/22/19 06/22/19 History aspirin 81 mg chewable tablet 81 mg PO DAILY@0800 ##1 06/23/19 Unknown Rx prednisone 10 mg tablet 60 mg (6 x 10 mg) PO DAILY #45 tabs 06/23/19 Unknown Rx valacyclovir 1 gram tablet 1,000 mg PO TID #21 tabs 06/23/19 Unknown Rx ondansetron 4 mg disintegrating 4 mg PO Q8H PRN nausea and 11/25/22 Unknown Rx tablet vomiting 5 days #15 tabs Allergy/AdvReac Type Severity Reaction Status Date / Time No Known Allergies Allergy Verified 12/31/23 18:52 Social History Smoking Status: Never smoker ROS ROS ED Constitutional Constitutional ED: Denies chills, fever(s) or weight loss Eyes Eyes: Denies change in vision or diplopia ENT ENT ED: Denies ear pain, rhinorrhea or sore throat Cardiovascular Cardiovascular: Denies chest pain, orthopnea, palpitations or racing heartbeat Respiratory/Chest Respiratory/Chest: Denies cough, dyspnea or orthopnea Gastrointestinal Gastrointestinal: Reports abdominal pain; Denies diarrhea, nausea or vomiting Genitourinary Genitourinary ED: Denies dysuria, hematuria or urinary frequency Musculoskeletal Musculoskeletal: Reports back pain; Denies arthralgias or myalgias Integumentary Denies abscess or rash Neurologic Neurologic: Denies headache(s) or weakness Psychiatric Psychiatric: Denies anxiety, depression, suicidal ideation or suicidal thoughts Endocrine Endocrinology: Denies polydipsia, polyphagia or polyuria Allergic/Immunologic Allergic/Immunologic ED: Denies mouth swelling, tongue swelling or urticaria EXAM Physical Exam Const Vital Signs: 12/31/23 18:53 12/31/23 20:51 12/31/23 21:28 Temperature 98.3 F 98 F Temperature Source Temporal Pulse Rate 90 67 78 Respiratory Rate 18 16 Blood Pressure 144/84 H 125/68 H 130/66 H Blood Pressure Mean 104 87 87 Pulse Ox 96 95 99 Oxygen Delivery Method Room Air Room Air Positive well nourished and well developed General Appearance ED: well developed HEENT Reports normocephalic, head/scalp atraumatic and moist mucous membranes Eyes PERRL and EOMs intact bilaterally Neck no lymphadenopathy, supple and no JVD Resp normal respiratory effort and clear to auscultation bilaterally Cardio regular rate, regular rhythm and no murmurs GI GI Narrative: Tender to palpation left lower quadrant over to just above the iliac crest. No guarding no rebound Auscultation: normoactive bowel sounds Palpation: soft; Negative for guarding or rebound tenderness present Back/Spine no CVA tenderness and normal ROM Extremity normal to inspection General Extremety ED: Negative for edema General Extremity: Negative for edema Neuro oriented x3 and CN's II-XII intact bilaterally Sensorium / Orientation: alert Motor Exam: strength 5/5 throughout Psych mental status grossly normal Mood & Affect: Negative for depressed or tearful Skin no rashes or lesions noted and no wounds MDM MDM MDM Narrative Medical decision making narrative: Differential diagnosis includes but not limited to kidney stone UTI/pyelonephritis colitis diverticulitis volvulus perforated viscus intra- abdominal abscess retroperitoneal hematoma White count is 17.9. Hemoglobin 13.5 and a platelet count of 245. Urinalysis 50-100 red cells 10-25 white cells rare bacteria negative nitrates creatinine 1.69 with a BUN of 15. CT of the abdomen pelvis demonstrates hydronephrosis and some hydroureter with perinephric stranding on the left. There is a stone in the bladder which I suspect is recently passed. Patient's pain is currently a 2 out of 10. He is not experiencing dysuria or frequency. His white count I believe is reactive. He had a high white count on his last kidney stone as well. He does not wish pain medicine at home. He will continue to drink fluids until symptoms resolve. He will return if worsening or concerns History & Record Review Discussion w/independent historian: Patient and Significant other Lab Data Attestation: I reviewed the patient's lab results. Labs: Laboratory Results - last 24 hr 12/31/23 12/31/23 19:00 19:35 WBC 17.9 H RBC 4.74 Hgb 13.5 Hct 40.7 MCV 85.9 MCH 28.5 MCHC 33.2 RDW Std Deviation 42.3 RDW Coeff of [place] 13.4 Plt Count 245 MPV 10.0 Immature Gran % (Auto) 1.300 H Neut % (Auto) 83.3 H Lymph % (Auto) 7.7 L [place] % (Auto) 7.3 Eos % (Auto) 0.2 Baso % (Auto) 0.2 Absolute Neuts (auto) 14.9 H Absolute Lymphs (auto) 1.38 Nucleated RBC % 0 Sodium 137 Potassium 4.2 Chloride 106 Carbon Dioxide 25.0 Anion Gap 6 BUN 15 Creatinine 1.69 H Estim Creat Clear Calc 42.16 Est GFR (MDRD) Af Amer 53 L Est GFR (MDRD) Non-Af 43 L BUN/Creatinine Ratio 8.9 L Glucose 116 H Calcium 9.4 Urine Color Yellow Urine Clarity Clear Urine pH 6.0 Ur Specific [place] 1.005 Urine Protein Negative Urine Glucose (UA) Normal Urine Ketones Negative Urine Occult Blood 150 H Urine Nitrite Negative Urine Bilirubin Negative Urine Urobilinogen Normal Ur Leukocyte Esterase 25 H Urine RBC 50-100 SEEN Urine WBC 10-25 SEEN Ur Squamous Epith Cells 0 SEEN Urine Bacteria RARE Urine Mucus 0 SEEN Radiography Diagnostic Testing: Clinical Impression(s) from Imaging Studies Abdomen/Pelvis CT 12/31/23 19:57 IMPRESSION: Bilateral renal cysts and calculi. Left hydronephrosis. Left perinephric stranding. There is a stone in the urinary bladder. Stable hepatic hypoattenuated lesions. Electronically Signed: Abram Garcia DO at 20:25 EDT Reading Location ID and State: [facility] / [place] Tel [phone], Service support , Discharge Plan Triage Chief Complaint: Flank Pain ED Provider: Dennys Lacy Dx/Rx/DC Orders Clinical Impression: Renal colic on left side, Ureterolithiasis Instructions: ED Kidney Stone, Passed Prescriptions: No Action telmisartan 40 MG tablet 40 mg PO QODAY prednisone 10 MG tablet 60 mg PO DAILY Qty: 45 0RF Rx Instructions: 60mg daily x5 days 50mg daily x1 days 40mg daily x1 days 30mg daily x1 days 20mg daily x1 days 10mg daily x1 day. then stop. valacyclovir 1,000 MG tablet 1,000 mg PO TID Qty: 21 0RF aspirin 81 MG tablet,chewable 81 mg PO DAILY@0800 Qty: 1 0RF ondansetron 4 mg tablet,disintegrating 4 mg PO Q8H PRN (Reason: nausea and vomiting) 5 Days Qty: 15 0RF Primary Care Provider: Pernell Garcia Referrals: Pernell Garcia DO [Primary Care Provider] - As Needed Print Language: [place] Citizen Disposition Disposition: Home, Self Care Discharge Date/Time: 12/31/23 21:35
--- NOTE | 2023-12-31 19:57 | CT_ITS ---
STUDY: CT ABDOMEN AND PELVIS WITHOUT CONTRAST REASON FOR EXAM: Male, 63 years old. Kidney Stone RADIATION DOSAGE (If Supplied By Facility): CTDIvol = ( 7.49 ) mGy, DLP = ( 392.82 ) mGycm TECHNIQUE: Transaxial images were obtained from the dome of the diaphragm to the symphysis pubis without oral contrast, and without intravenous contrast. Sagittal and coronal images were reconstructed. Individualized dose optimization techniques were used for this CT. COMPARISON: November 25, 2022. FINDINGS: The visualized lung bases are unremarkable. The visualized portions of the heart are within normal limits. Up to 2.3 cm hepatic hypoattenuated nodules in the liver. Normal gallbladder and extrahepatic biliary system. Normal spleen. Normal pancreas. Normal bilateral adrenal glands. 2.1 cm cyst and up to 2 mm calculi in the right kidney. 2.3 cm cyst and up to 3 mm calculi in the left kidney. Left hydronephrosis and perinephric stranding. Normal visualized stomach. Normal small intestine. Normal colon. The appendix is visualized and appears normal. Normal abdominal aorta. Normal inferior vena cava. Normal retroperitoneum. There is a 2 mm stone in the urinary bladder. Normal abdominal wall. Normal osseous structures. CT/Abdomen/Pelvis without Cont IMPRESSION: Bilateral renal cysts and calculi. Left hydronephrosis. Left perinephric stranding. There is a stone in the urinary bladder. Stable hepatic hypoattenuated lesions. Electronically Signed: Abram Garcia DO at 20:25 EDT ,
[2023-12-31 20:15] LABS: Absolute Lymphocyte Count 1.38 X10^3/uL (0.83-4.51); Absolute Neutrophil Count 14.9 X10^3/uL (2.0-7.7); Basophil# 0.03 X10^3/uL; Basophil% 0.2 % (0-1); Eosinophil# 0.03 X10^3/uL; Eosinophils% 0.2 % (0-5); Hematocrit 40.7 % (40-54); Hemoglobin 13.5 g/dL (13.0-16.5); Lymphocyte # 1.38 X10^3/ul (0.83-4.51); Lymphocyte % 7.7 % (19-41); Mean Corp Hgb Conc 33.2 g/dL (32-36); Mean Corpuscular Hgb 28.5 pg (27.0-32.0); Mean Corpuscular Volume 85.9 fL (80-94); Monocyte# 1.31 X10^3/uL; Monocyte% 7.3 % (0-10); NRBC Flagged by Analyzer 0 % (0-5); Neutrophil # 14.92 X10^3/uL (2.7-7.7); Neutrophil % 83.3 % (47-70); Platelet Count 245 K/mm3 (150-450); RBC Distribution Width CV 13.4 % (11.6-14.6); RBC Distribution Width SD 42.3 fl (35.1-43.9); Red Blood Count 4.74 M/mm3 (4.6-6.2); White Blood Count 17.9 K/mm3 (4.4-11.0)
[2023-12-31 20:33] LABS: Anion Gap 6 (5-15); BUN 15 mg/dL (7-18); BUN/Creat Ratio 8.9 RATIO (10-20); Calcium,Total 9.4 mg/dL (8.5-10.1); Chloride 106 mmol/L (98-107); Creatinine, Serum 1.69 mg/dL (0.70-1.30); EST Glomerular Filtration Rate 43 mL/min (>60); Est Glom Filt Rate - Afr Amer 53 mL/min (>60); Estimated Creatinine Clearance 42.16 ml/min; Glucose 116 mg/dL (74-106); Potassium 4.2 mmol/L (3.5-5.1); Sodium Level 137 mmol/L (136-145)
[2023-12-31 20:51] VITALS: BP 125/68; PULSE 67; RESP 18; O2SAT 95
[2023-12-31 21:28] VITALS: BP 130/66; PULSE 78; RESP 16; TEMP 36.6; O2SAT 99
== END 2023-12-31 21:35 | disposition home or self-care (01) ==
PROVIDERS: Emergency Provider Emergency Medicine; PCP Family Medicine; Visit Provider Emergency Medicine
DX: N23 Unspecified renal colic (principal); N13.2 Hydronephrosis with renal and ureteral calculous obstruction; I10 Essential (primary) hypertension; Z79.82 Long term (current) use of aspirin; Z79.899 Other long term (current) drug therapy
CPT/HCPCS: 74176; 80048; 81001; 85025; 96360; 99283; J7030; A4216